=== PATIENT | female | born 2000 | race Caucasian/White ===

== ENCOUNTER 2018-05-14 13:23 | Emergency (ER) | payer OTHER, SELFPAY ==
[2018-05-14 14:05] LABS: Absolute Lymphocytes (CBC) 1.5 K/uL (0.7-4.9); Absolute Monocytes 0.6 K/uL (0.1-1.3); Absolute Neutrophil 4.7 K/uL (1.8-8.0); Basophils % 0.5 % (0-1.3); Hematocrit 41.7 % (36.0-45.0); Lymphocytes % 22.1 % (15.3-44.8); MCH 31.1 pg (27.0-35.0); MCV 91.6 fL (80-100); RBC Red Blood Cell Count 4.55 M/uL (3.86-4.86)
[2018-05-14 14:07] LABS: Protime INR 0.97
[2018-05-14 14:25] LABS: ALT/SGPT 25 U/L (12-78); AST/SGOT 22 U/L (15-37); Albumin 4.1 g/dL (3.4-5.0); Alkaline Phosphatase 57 U/L (45-117); BUN Blood Urea Nitrogen 15 mg/dL (7-18); Bicarbonate 24 mmol/L (21-32); Bilirubin Direct 0.1 mg/dL (0-0.2); Bilirubin Total 0.5 mg/dL (0.2-1.0); Glucose Level 89 mg/dL (74-106); Potassium 3.5 mmol/L (3.5-5.1); Protein, Total 7.1 g/dL (6.4-8.2); Sodium Level 142 mmol/L (136-145)
[2018-05-14 14:36] LABS: Alcohol Serum/Plasma 3 mg/dL (0-3)
--- NOTE | 2018-05-14 15:26 | EKG ---
Test Date: 2018-05-14 Test Time: 13:43:21 Baggage Checker: JORGE MEASUREMENT RESULTS: Intervals: Rate: 58 [place]: 146 QRSD: 94 QT: 422 QTc: 414 [place]: P: 42 [place]: 146 QRS: 60 T: 53 INTERPRETIVE STATEMENTS: Sinus bradycardia with marked sinus arrhythmia Otherwise normal ECG Compared to ECG 09/30/2016 20:29:37 Sinus rhythm no longer present Electronically Signed On 05-14-18 15:25:56 CDT by Robert Crandall
[2018-05-14 16:03] LABS: Barbiturates NEGATIVE (NEGATIVE); Benzodiazepines POSITIVE (NEGATIVE); Cocaine NEGATIVE (NEGATIVE); METHAMPHETAM NEGATIVE (NEGATIVE); Methadone NEGATIVE (NEGATIVE); Opiates NEGATIVE (NEGATIVE); Phencyclidine NEGATIVE (NEGATIVE); THC Cannibis POSITIVE (NEGATIVE)
[2018-05-14 17:49] LABS: Urine Blood NEGATIVE (NEG); Urine Glucose NEGATIVE (NEG); Urine Protein NEGATIVE (NEG); Urine Specific Gravity 1.025 (1.005-1.030); Urine pH 6.5 (5.0-7.0)
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
[2018-05-14 22:17] LABS: Urine Specific Gravity 1.025 (1.005-1.030)
== END 2018-05-14 20:43 | disposition home or self-care (01) ==
LOC: ER 13:23
DX: F55.8 Abuse of other non-psychoactive substances (principal); T14.91XA Suicide attempt, initial encounter; X83.8XXA Intentional self-harm by other specified means, initial encounter; Y92.199 Unspecified place in other specified residential institution as the place of occurrence of the external cause; R45.851 Suicidal ideations
CPT/HCPCS: 36415; 80048; 80076; 80307; 80320; 81003; 81025; 85025; 85610; 93005; 99285

== ENCOUNTER 2018-09-02 10:55 | Emergency (ER) | payer OTHER ==
[2018-09-02] MEDS ORDERED: HYDROCODONE/APAP 5/325 MG TAB ONE (13:12)
[2018-09-02] MEDS ORDERED: LIDOCAINE 1% W/EPI 1:100,000 MDV 50 ML VIAL ONE (13:12)
[2018-09-02] MEDS ORDERED: DERMABOND SKIN ADHESIVE TOP ONE (13:16)
--- NOTE | 2018-09-02 14:06 | RAD REPORT ---
EXAM DESCRIPTION: RAD - Hand Left 3 View - 09/02/2018 1:56 pm CLINICAL HISTORY: PAIN COMPARISON: No comparisons FINDINGS: No bone or joint abnormality seen.
--- NOTE | 2018-09-02 14:06 | RAD REPORT ---
EXAM DESCRIPTION: RAD - Hand Right 3 View - 09/02/2018 1:56 pm CLINICAL HISTORY: DEFORMITY Pain COMPARISON: No comparisons FINDINGS: No fracture or dislocation identified. Soft tissue swelling is noted about the metatarsal head region.
--- NOTE | 2018-09-02 15:12 | ER ---
Nurse's Notes [facility] Name: Nathaly Vasquez Age: 18 yrs Sex: Female : 2000 Arrival Date: 09/02/2018 Time: 10:58 Bed 12 Private MD: Diagnosis: Puncture wound without foreign body of hand Presentation: 09/02 11:21 Presenting complaint: Patient states: i broke a window and it happened 7am today and hj feel like R knuckles had cuts and i feel like my R fingers are starting to feel numb;. Transition of care: patient was not received from another setting of care. Onset of symptoms was September 02, 2018. Risk Assessment: Do you want to hurt yourself or someone else? Patient reports no desire to harm self or others. Initial Sepsis Screen: Does the patient meet any 2 criteria? No. Patient's initial sepsis screen is negative. Does the patient have a suspected source of infection? No. Patient's initial sepsis screen is negative. Care prior to arrival: None. 11:21 Method Of Arrival: Ambulatory 11:21 Acuity: ELLIOT 4 Triage Assessment: 11:24 General: Appears in no apparent distress. uncomfortable, Behavior is calm, cooperative, hj appropriate for age. Pain: Complains of pain in right hand. Musculoskeletal: Reports pain in right hand. 14:58 Injury Description: Laceration. 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 - Social history:: Smoking status: Patient uses tobacco products, Patient/guardian denies using alcohol, Patient/guardian denies using street drugs, The patient lives with family. - Ebola Screening: : Patient negative for fever greater than or equal to 101.5 degrees Fahrenheit, and additional compatible Ebola Virus Disease symptoms Patient denies exposure to infectious person Patient denies travel to an Ebola-affected area in the 21 days before illness onset. - Family history:: not pertinent. Screenin:24 Abuse screen: Denies threats or abuse. Denies injuries from another. Nutritional hj screening: No deficits noted. Tuberculosis screening: No symptoms or risk factors identified. Fall Risk None identified. Assessment: 12:00 Reassessment: soaked wound with betadine and NS;. hj 14:50 Reassessment: Patient and/or family updated on plan of care and expected duration. Pain hj level reassessed. Patient is alert, oriented x 3, equal unlabored respirations, skin warm/dry/pink. applied with triple antibiotics and gauze dressing;. 14:58 Reassessment: was calling pt for follow up with steri strips; pt did not answer and hj return call;. Vital Signs: 11:25 BP 117 / 73; Pulse 75; Resp 18; Temp 98.6(O); Pulse Ox 99% on R/A; Weight 58.97 kg; hj Height 5 ft. 6 in. (167.64 cm); Pain 8/10; 14:58 BP 118 / 75; Pulse 74; Resp 18; Pulse Ox 100% on R/A; hj 11:25 Body Mass Index 20.98 (58.97 kg, 167.64 cm) hj ED Course: 10:58 Patient arrived in ED. rg4 11:24 Triage completed. hj 11:24 Arm band placed on right wrist. hj 11:27 Patient has correct armband on for positive identification. Bed in low position. Call hj light in reach. Side rails up X 1. Adult w/ patient. 12:41 Chidi Nolan MD is Attending Physician. ma2 13:12 Hipolito Murrell, BRENT is Primary Nurse. hj 13:56 Hand Left 3 View XRAY In Process Unspecified. EDMS 13:56 Hand Right 3 View XRAY In Process Unspecified. EDMS 14:57 No provider procedures requiring assistance completed. Patient did not have IV access hj during this emergency room visit. Administered Medications: 13:08 Drug: Orange 5 mg-325 mg 1 tabs Route: PO; hj 14:57 Follow up: Response: No adverse reaction hj 13:12 Drug: Lidocaine-Epinephrine -1%: (1:100,000) 10 ml Volume: 20 ml; Route: Infiltration; hj Outcome: 14:44 Discharge ordered by . ma2 14:57 Discharged to home ambulatory, with family. hj 14:57 Condition: stable 14:57 Discharge instructions given to patient, family, Instructed on discharge instructions, follow up and referral plans. Demonstrated understanding of instructions, follow-up care, medications, Prescriptions given X 2. 14:59 Patient left the ED. anthony Signatures: Dispatcher [employer] EDHipolito Brunson RN RN hj Garcia, Rubi rg4 Chidi Nolan MD MD ma2 Corrections: (The following items were deleted from the chart) 15:13 14:58 Reassessment: soaked wound with betadine and NS; anthony cruz
--- NOTE | 2018-09-02 15:13 | EDPHYS ---
Physician Documentation [facility] Name: Nathaly Vasquez Age: 18 yrs Sex: Female : 2000 Arrival Date: 09/02/2018 Time: 10:58 Bed 12 Private MD: ED Physician Chidi Nolan HPI: 09/02 12:59 This 18 yrs old Female presents to ER via Ambulatory with complaints of Hand ma2 Injury. 12:59 The patient or guardian reports an abrasion, decreased range of motion, injury. The ma2 complaints affect the left hand diffusely, right hand diffusely. Onset: The symptoms/episode began/occurred suddenly, 2 hour(s) ago. Associated signs and symptoms: Pertinent negatives: cyanosis distally, decreased sensation distally, nausea, vomiting. Severity of symptoms: At their worst the symptoms were moderate, in the emergency department the symptoms are unchanged. The patient has not experienced similar symptoms in the past. punched and broke glass door this morning wit both hand, has hand pain and multiple lacerations, Tdap UTD. 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 - Social history:: Smoking status: Patient uses tobacco products, Patient/guardian denies using alcohol, Patient/guardian denies using street drugs, The patient lives with family. - Ebola Screening: : Patient negative for fever greater than or equal to 101.5 degrees Fahrenheit, and additional compatible Ebola Virus Disease symptoms Patient denies exposure to infectious person Patient denies travel to an Ebola-affected area in the 21 days before illness onset. - Family history:: not pertinent. ROS: 13:04 Constitutional: Negative for fever, chills, and weight loss, ENT: Negative for injury, ma2 pain, and discharge, Cardiovascular: Negative for chest pain, palpitations, and edema, Respiratory: Negative for shortness of breath, cough, wheezing, and pleuritic chest pain, Abdomen/GI: Negative for abdominal pain, nausea, diarrhea, and constipation. 13:04 MS/extremity: Positive for abrasion, laceration, pain, swelling, tenderness, Negative for bite, decreased range of motion, deformity, tingling, warmth. 13:04 All other systems are negative. Exam: 13:04 Constitutional: This is a well developed, well nourished patient who is awake, alert, ma2 and in no acute distress. Head/Face: Normocephalic, atraumatic. Chest/axilla: Normal chest wall appearance and motion. Nontender with no deformity. No lesions are appreciated. Cardiovascular: Regular rate and rhythm with a normal S1 and S2. No gallops, murmurs, or rubs. Normal PMI, no JVD. No pulse deficits. Respiratory: Lungs have equal breath sounds bilaterally, clear to auscultation and percussion. No rales, rhonchi or wheezes noted. No increased work of breathing, no retractions or nasal flaring. Abdomen/GI: Soft, non-tender, with normal bowel sounds. No distension or tympany. No guarding or rebound. No evidence of tenderness throughout. Neuro: Awake and alert, GCS 15, oriented to person, place, time, and situation. Cranial nerves II-XII grossly intact. Motor strength 5/5 in all extremities. Sensory grossly intact. Cerebellar exam normal. Normal gait. 13:04 Musculoskeletal/extremity: Extremities: multiple laceration and edema over pip of 4th and fith finger all over, ROM: limited active range of motion, Circulation is intact in all extremities. Sensation intact. Compartment Syndrome exam of affected extremity: is normal. Vital Signs: 11:25 BP 117 / 73; Pulse 75; Resp 18; Temp 98.6(O); Pulse Ox 99% on R/A; Weight 58.97 kg; hj Height 5 ft. 6 in. (167.64 cm); Pain 8/10; 14:58 BP 118 / 75; Pulse 74; Resp 18; Pulse Ox 100% on R/A; hj 11:25 Body Mass Index 20.98 (58.97 kg, 167.64 cm) MDM: 12:41 Patient medically screened. [facility] 13:04 Differential diagnosis: open fracture, closed fracture, contusion, abrasion, tendonitis.[facility] 14:42 Data reviewed: vital signs, nurses notes. Counseling: I had a detailed discussion with ma2 the patient and/or guardian regarding: the historical points, exam findings, and any diagnostic results supporting the discharge/admit diagnosis, the presence of at least one elevated blood pressure reading (>120/80) during this emergency department visit, the need for outpatient follow up. Response to treatment: the patient's symptoms have mildly improved after treatment. ED course: xray wnl, she has multiple puncture wound of both hands no repairable lacerations, \E\. 09/02 12:58 Order name: Hand Left 3 View XRAY; Complete Time: 14:19 ma2 09/02 12:58 Order name: Hand Right 3 View XRAY; Complete Time: 14:19 ma2 09/02 12:58 Order name: Prolene, Sutures; Complete Time: 13:12 ma2 09/02 12:58 Order name: Dermabond; Complete Time: 13:12 ma2 09/02 12:58 Order name: Gloves, Sterile; Complete Time: 13:09 ma2 09/02 12:58 Order name: Dressing - Wound; Complete Time: 13:09 ma2 09/02 12:58 Order name: Setup Suture Tray; Complete Time: 13:09 ma2 09/02 14:41 Order name: Dressing - Wound: with bacitracin or triple antibiotics and apply ma2 steritrips ; Complete Time: 14:57 Administered Medications: 13:08 Drug: [place] 5 mg-325 mg 1 tabs Route: PO; 14:57 Follow up: Response: No adverse reaction 13:12 Drug: Lidocaine-Epinephrine -1%: (1:100,000) 10 ml Volume: 20 ml; Route: Infiltration; Disposition: 09/02/18 14:44 Discharged to Home. Impression: Puncture wound without foreign body of hand. - Condition is Stable. - Discharge Instructions: Delayed Wound Closure. - Prescriptions for Augmentin 875- 125 mg Oral Tablet - take 1 tablet by ORAL route every 12 hours for 10 days; 20 tablet. Tylenol- Codeine #3 300-30 mg Oral Tablet - take 2 tablet by ORAL route every 6 hours As needed; 6 tablet. - Medication Reconciliation Form, Thank You Letter, Antibiotic Education, Prescription Opioid Use form. - Follow up: Private Physician; When: Tomorrow; Reason: Continuance of care. Signatures: Dispatcher [employer] EDHipolito Brunson RN RN hj Alzahri, Mohammad, MD MD ma2 Corrections: (The following items were deleted from the chart) 14:59 14:44 09/02/2018 14:44 Discharged to Home. Impression: Puncture wound without foreign hj body of hand. Condition is Stable. Forms are Medication Reconciliation Form, Thank You Letter, Antibiotic Education, Prescription Opioid Use. Follow up: Private Physician; When: Tomorrow; Reason: Continuance of care. ma2
== END 2018-09-02 14:59 | disposition home or self-care (01) ==
LOC: ER 10:55
DX: S61.431A Puncture wound without foreign body of right hand, initial encounter (principal); W22.8XXA Striking against or struck by other objects, initial encounter; Y93.9 Activity, unspecified; Y92.9 Unspecified place or not applicable; Z72.0 Tobacco use
CPT/HCPCS: 99283

== ENCOUNTER 2019-01-28 05:31 | Emergency (ER) | payer OTHER ==
[2019-01-28 06:30] LABS: Urine Blood TRACE (NEG); Urine Glucose NEGATIVE (NEG); Urine Protein NEGATIVE (NEG)
[2019-01-28 06:36] LABS: Absolute Lymphocytes (CBC) 2.8 K/uL (0.7-4.9); Absolute Monocytes 0.6 K/uL (0.1-1.3); Absolute Neutrophil 5.1 K/uL (1.8-8.0); Basophils % 0.5 % (0-1.3); Eosinophils % 0.9 % (0-4.4); Hematocrit 42.6 % (36.0-45.0); Lymphocytes % 32.4 % (15.3-44.8); MPV 8.2 fL (7.6-11.3); Monocytes % 7.2 % (3.3-12.3); RBC Red Blood Cell Count 4.57 M/uL (3.86-4.86)
[2019-01-28] MEDS ORDERED: TETANUS & DIPHTHERIA TOX,ADULT 0.5 ML VIAL ONE (06:36)
[2019-01-28] MEDS ORDERED: DERMABOND SKIN ADHESIVE TOP ONE (06:36)
[2019-01-28 06:38] LABS: Protime INR 0.92
[2019-01-28 06:40] LABS: Barbiturates NEGATIVE (NEGATIVE); Benzodiazepines NEGATIVE (NEGATIVE); Cocaine POSITIVE (NEGATIVE); METHAMPHETAM NEGATIVE (NEGATIVE); Methadone NEGATIVE (NEGATIVE); Opiates NEGATIVE (NEGATIVE); Phencyclidine NEGATIVE (NEGATIVE); THC Cannibis POSITIVE (NEGATIVE)
[2019-01-28] MEDS ORDERED: LIDOCAINE 1% 20 ML MDV ONE (06:50)
[2019-01-28 07:28] LABS: ALT/SGPT 22 U/L (12-78); AST/SGOT 17 U/L (15-37); Albumin 4.3 g/dL (3.4-5.0); Alkaline Phosphatase 56 U/L (45-117); BUN Blood Urea Nitrogen 10 mg/dL (7-18); Bicarbonate 27 mmol/L (21-32); Bilirubin Direct 0.1 mg/dL (0-0.2); Bilirubin Total 0.4 mg/dL (0.2-1.0); Glucose Level 93 mg/dL (74-106); Potassium 3.7 mmol/L (3.5-5.1); Protein, Total 7.8 g/dL (6.4-8.2); Sodium Level 145 mmol/L (136-145)
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
--- NOTE | 2019-01-28 08:33 | EKG ---
Test Date: 2019-01-28 Test Time: 04:49:21 Sounding Device Operator: BRAYDEN MEASUREMENT RESULTS: Intervals: Rate: 109 ME: 150 QRSD: 88 QT: 352 QTc: 474 Cyrus: P: 51 ME: 150 QRS: 66 T: 45 INTERPRETIVE STATEMENTS: Sinus tachycardia Otherwise normal ECG Compared to ECG 05/14/2018 13:43:21 Sinus bradycardia no longer present Sinus arrhythmia no longer present Electronically Signed On 01-28-19 08:32:30 CDT by Robert Crandall
== END 2019-01-28 08:10 ==
LOC: ER 05:31
PROC: 0JQ10ZZ Repair Face Subcutaneous Tissue and Fascia, Open Approach (ICD-10-PCS; principal; 2019-01-28)
DX: S01.81XA Laceration without foreign body of other part of head, initial encounter (principal); W22.8XXA Striking against or struck by other objects, initial encounter; F14.10 Cocaine abuse, uncomplicated; Z23 Encounter for immunization; R45.851 Suicidal ideations
CPT/HCPCS: 36415; 80048; 80076; 80307; 80320; 80329; 81003; 81025; 85025; 85610; 85730; 90714; 93005; 99285

== ENCOUNTER 2019-09-07 06:14 | Emergency (ER) | payer OTHER ==
[2019-09-07] MEDS ORDERED: NA CHLORIDE 0.9% 1,000 ML ONE ×2 (06:43→08:41)
[2019-09-07 06:57] LABS: Protime INR 0.99
[2019-09-07 07:02] LABS: Barbiturates NEGATIVE (NEGATIVE); Benzodiazepines NEGATIVE (NEGATIVE); Cocaine NEGATIVE (NEGATIVE); METHAMPHETAM NEGATIVE (NEGATIVE); Methadone NEGATIVE (NEGATIVE); Opiates NEGATIVE (NEGATIVE); Phencyclidine NEGATIVE (NEGATIVE); THC Cannibis NEGATIVE (NEGATIVE)
[2019-09-07 07:14] LABS: ALT/SGPT 24 U/L (12-78); AST/SGOT 18 U/L (15-37); Albumin 4.5 g/dL (3.4-5.0); Alkaline Phosphatase 55 U/L (45-117); BUN Blood Urea Nitrogen 7 mg/dL (7-18); Bicarbonate 26 mmol/L (21-32); Bilirubin Direct 0.1 mg/dL (0-0.2); Bilirubin Total 0.3 mg/dL (0.2-1.0); Glucose Level 88 mg/dL (74-106); Potassium 3.7 mmol/L (3.5-5.1); Protein, Total 8.1 g/dL (6.4-8.2); Sodium Level 144 mmol/L (136-145)
[2019-09-07 07:15] LABS: Urine Blood 2+ (NEG); Urine Glucose NEGATIVE (NEG); Urine Protein NEGATIVE (NEG); Urine Specific Gravity 1.015 (1.005-1.030); Urine pH 5.5 (5.0-7.0)
[2019-09-07 07:19] LABS: Absolute Lymphocytes (CBC) 2.3 K/uL (0.7-4.9); Basophils % 0.6 % (0-1.3); Hematocrit 40.4 % (36.0-45.0); Lymphocytes % 43.6 % (15.3-44.8); MPV 7.8 fL (7.6-11.3); RBC Red Blood Cell Count 4.44 M/uL (3.86-4.86)
--- NOTE | 2019-09-07 15:25 | ER ---
Nurse's Notes [facility] Name: Nathaly Vasquez Age: 19 yrs Sex: Female : 2000 Arrival Date: 09/07/2019 Time: 06:20 Bed 16 Private MD: Diagnosis: Alcohol use, unspecified with intoxication Presentation: 09/07 06:30 Presenting complaint: EMS states: they were toned out for report of pt with suicidal bb ideations. Transition of care: patient was not received from another setting of care. Onset of symptoms was September 07, 2019. Risk Assessment: Do you want to hurt yourself or someone else? Patient reports no desire to harm self or others. Initial Sepsis Screen: Does the patient meet any 2 criteria? No. Patient's initial sepsis screen is negative. Does the patient have a suspected source of infection? No. Patient's initial sepsis screen is negative. Care prior to arrival: None. 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 - Social history:: Smoking status: Patient/guardian denies using tobacco, Patient uses alcohol, patient/guardian reports recent binge of alcohol consumption. - Ebola Screening: : No symptoms or risks identified at this time. Screenin:46 Abuse screen: Denies threats or abuse. Denies injuries from another. Nutritional wh screening: No deficits noted. Tuberculosis screening: No symptoms or risk factors identified. Fall Risk None identified. Assessment: 06:47 General: Appears in no apparent distress. Behavior is cooperative, appropriate for age, wh crying, Smells of alcohol. Pain: Denies pain. Neuro: Level of Consciousness is awake, alert, obeys commands, Oriented to person, place, time, situation, Appropriate for age. Cardiovascular: Heart tones S1 S2. Respiratory: Airway is patent Respiratory effort is even, unlabored, Respiratory pattern is regular, symmetrical, Breath sounds are clear bilaterally. GI: Abdomen is flat, non-distended. : No signs and/or symptoms were reported regarding the genitourinary system. EENT: No signs and/or symptoms were reported regarding the EENT system. Derm: Skin is intact, is healthy with good turgor, Skin is pink, warm \\T\\ dry. normal. Musculoskeletal: Circulation, motion, and sensation intact. 07:45 Reassessment: Patient appears in no apparent distress at this time. No changes from rb1 previously documented assessment. 08:44 Reassessment: Patient appears in no apparent distress at this time. Patient and/or rb1 family updated on plan of care and expected duration. Pain level reassessed. Patient is alert, oriented x 3, equal unlabored respirations, skin warm/dry/pink. 08:46 Reassessment: Pt. mother called for information, I explained to the mother that I was rb1 not able to release information over the phone due to privacy issues, she then stated, "I'm her mother." She was very agitated. I reiterated that legally I could not release information. The mother stated, "Will you let her know that I was there this morning and that I called to check on her?" I agreed and the mother asked me why I was being condescending to her, I apologized and told her that I didn't mean to sound that way, she told me to record myself and listen to it because she has had to do that before and hung up. 09:44 Reassessment: Patient appears in no apparent distress at this time. Pt. is resting with rb1 eyes closed, respirations even, unlabored. 10:44 Reassessment: Patient appears in no apparent distress at this time. No changes from rb1 previously documented assessment. 11:40 Reassessment: Patient appears in no apparent distress at this time. Pt. is resting with rb1 eyes closed, respirations even, unlabored. 12:40 Reassessment: Patient appears in no apparent distress at this time. No changes from rb1 previously documented assessment. 13:38 Reassessment: Pt. denies suicidal and homicidal ideation. Pt. reports, "When the harpoon engagement planning operator rb1 caught me walking on the road, they told me that I could come here or go to [facility], so I told them I wanted to come here because I didn't want to go to [facility]. 14:30 Reassessment: Patient appears in no apparent distress at this time. Patient and/or rb1 family updated on plan of care and expected duration. Pain level reassessed. Patient is alert, oriented x 3, equal unlabored respirations, skin warm/dry/pink. 15:30 Reassessment: Patient appears in no apparent distress at this time. No changes from rb1 previously documented assessment. PT. contacted her sister to come and pick her up. Discharge pending due to transportation. 15:45 Reassessment: Pt. sister has arrived to provide transportation. rb1 Psych: 06:46 Subjective: Patient's mood is sad. Objective: Patient is cooperative, Speech is normal, wh Affect is flat. Interventions: Removed personal items and placed in bag. Patient placed in hospital gown. Searched person for dangerous items. Urine collected and sent for urine drug test. Belonging list filled out. Suicide Risk Assessment: Sad Person Scale: Sex of patient: Female: Score 0 points. Age of patient: Score 1 point if patient 15-34. Safety Checks: Personal items have been removed. Door is open. No visitors are present at this time. Patient uses. Commitment: Patient will be a voluntary commitment. Vital Signs: 06:38 BP 115 / 81; Pulse 81; Resp 14 S; Temp 98.3(O); Pulse Ox 95% on R/A; Weight 68.04 kg bb (R); Height 5 ft. 6 in. (167.64 cm) (R); 07:38 BP 119 / 79; Pulse 77; Resp 16; Pulse Ox 97% on R/A; jb1 10:30 BP 105 / 72; Pulse 72; Resp 16; Pulse Ox 97% on R/A; jb1 13:30 BP 121 / 65; Pulse 79; Resp 17; Pulse Ox 98% on R/A; jb1 15:30 BP 119 / 66; Pulse 71; Resp 16; Temp 98.2(O); Pulse Ox 100% on R/A; Pain 0/10; rb1 06:38 Body Mass Index 24.21 (68.04 kg, 167.64 cm) ED Course: 06:20 Patient arrived in ED. bb 06:21 Arya Woodard PA is PHCP. cp 06:21 Arya Duran MD is Attending Physician. cp 06:26 Killian More is Primary Nurse. wh 06:37 Triage completed. bb 06:38 Arm band placed on Patient placed in an exam room, on a stretcher, on pulse oximetry. bb 06:47 Patient has correct armband on for positive identification. Placed in gown. Bed in low wh position. Call light in reach. Side rails up X 1. Sitter at bedside. 07:00 Safety checks: Items removed: yes. Door open/sign placed on door: yes. Family/friend jb1 present: no. Sitter present: Yes. 07:15 Safety checks: Items removed: yes. Door open/sign placed on door: yes. Family/friend jb1 present: no. Sitter present: Yes. 07:30 Safety checks: Items removed: yes. Door open/sign placed on door: yes. Family/friend jb1 present: no. Sitter present: Yes. 07:45 Safety checks: Items removed: yes. Door open/sign placed on door: yes. Family/friend jb1 present: no. Sitter present: Yes. 07:58 Safety checks: Items removed: yes. Door open/sign placed on door: yes. Family/friend jb1 present: no. Sitter present: Yes. 08:15 Safety checks: Items removed: yes. Door open/sign placed on door: yes. Family/friend jb1 present: no. Sitter present: Yes. 08:30 Safety checks: Items removed: yes. Door open/sign placed on door: yes. Family/friend jb1 present: no. Sitter present: Yes. 08:45 Safety checks: Items removed: yes. Door open/sign placed on door: yes. Family/friend jb1 present: no. Sitter present: Yes. 09:00 Safety checks: Items removed: yes. Door open/sign placed on door: yes. Family/friend jb1 present: no. Sitter present: Yes. 09:15 Safety checks: Items removed: yes. Door open/sign placed on door: yes. Family/friend jb1 present: no. Sitter present: Yes. 09:30 Safety checks: Items removed: yes. Door open/sign placed on door: yes. Family/friend jb1 present: no. Sitter present: Yes. 09:45 Safety checks: Items removed: yes. Door open/sign placed on door: yes. Family/friend jb1 present: no. Sitter present: Yes. 10:00 Safety checks: Items removed: yes. Door open/sign placed on door: yes. Family/friend jb1 present: no. Sitter present: Yes. 10:15 Safety checks: Items removed: yes. Door open/sign placed on door: yes. Family/friend jb1 present: no. Sitter present: Yes. 10:30 Safety checks: Items removed: yes. Door open/sign placed on door: yes. Family/friend jb1 present: no. Sitter present: Yes. 10:45 Safety checks: Items removed: yes. Door open/sign placed on door: yes. Family/friend jb1 present: no. Sitter present: Yes. 11:00 Safety checks: Items removed: yes. Door open/sign placed on door: yes. Family/friend jb1 present: no. Sitter present: Yes. 11:15 Safety checks: Items removed: yes. Door open/sign placed on door: yes. Family/friend jb1 present: no. Sitter present: Yes. 11:26 Safety checks: Items removed: yes. Door open/sign placed on door: yes. Family/friend jb1 present: no. Sitter present: Yes. 11:30 Safety checks: Items removed: yes. Door open/sign placed on door: yes. Family/friend jb1 present: no. Sitter present: Yes. 11:45 Safety checks: Items removed: yes. Door open/sign placed on door: yes. Family/friend jb1 present: no. Sitter present: Yes. 12:00 Safety checks: Items removed: yes. Door open/sign placed on door: yes. Family/friend jb1 present: no. Sitter present: Yes. 12:13 Safety checks: Items removed: yes. Door open/sign placed on door: yes. Family/friend jb1 present: no. Sitter present: Yes. 12:30 Safety checks: Items removed: yes. Door open/sign placed on door: yes. Family/friend jb1 present: no. Sitter present: Yes. 12:45 Safety checks: Items removed: yes. Door open/sign placed on door: yes. Family/friend jb1 present: no. Sitter present: No. 13:00 Safety checks: Items removed: yes. Door open/sign placed on door: yes. Family/friend jb1 present: no. Sitter present: Yes. 13:15 Safety checks: Items removed: yes. Door open/sign placed on door: yes. Family/friend jb1 present: no. Sitter present: Yes. 13:30 Safety checks: Items removed: yes. Door open/sign placed on door: yes. Family/friend jb1 present: no. Sitter present: Yes. 15:56 No provider procedures requiring assistance completed. IV discontinued, intact, rb1 bleeding controlled, No redness/swelling at site. Pressure dressing applied. Administered Medications: 06:43 Drug: NS 0.9% 1000 ml Route: IV; Rate: 1 bolus; Site: left antecubital; 08:44 Follow up: IV Status: Completed infusion rb1 08:50 Drug: NS 0.9% 1000 ml Route: IV; Rate: 125 ml/hr; Site: left antecubital; rb1 15:20 Follow up: IV Status: Completed infusion rb1 Outcome: 15:24 Discharge ordered by MD. cp 15:56 Discharged to home ambulatory, with family. rb1 15:56 Condition: stable 15:56 Discharge instructions given to patient, Instructed on discharge instructions, follow up and referral plans. Demonstrated understanding of instructions, follow-up care, Prescriptions given X none 15:56 Patient left the ED. rb1 Signatures: Darius Craft1 Jacqueline Serrano RN RN bb Arya Woodard PA PA cp Aileen Herrera, RN RN [facility] Killian More Corrections: (The following items were deleted from the chart) 10:04 08:46 Reassessment: Pt. mother called for information, I explained to the mother that I rb1 was not able to release information over the phone due to privacy issues, she then stated, "I'm her mother." She was very agitated. I reiterated that legally I could not release information. The mother stated, "Will you let her know that I was there this morning and that I called to check on her?" I agreed and the mother asked me why I was being condescending to her, I apologized and told her that I didn't mean to sound that way and she hung up. rb1 11:40 11:40 Safety checks: jb1 jb1 16:01 16:00 Patient left the ED. rb1 rb1
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
[2019-09-07 18:23] VITALS: BP 119/66; TEMP 98.2; O2SAT 100
--- NOTE | 2019-09-08 17:22 | EKG ---
Test Date: 2019-09-07 Test Time: 06:27:14 Finishing Supervisor: KIARA MEASUREMENT RESULTS: Intervals: Rate: 84 IA: 158 QRSD: 94 QT: 388 QTc: 458 [place]: P: 44 IA: 158 QRS: 66 T: 56 INTERPRETIVE STATEMENTS: Normal sinus rhythm Normal ECG Compared to ECG 01/28/2019 04:49:21 Sinus tachycardia no longer present Electronically Signed On 09-08-19 17:22:12 CDT by Robert Crandall
== END 2019-09-07 16:00 | disposition home or self-care (01) ==
LOC: ER 06:14 → EEVIPCON 06:14 → ER 16:00
DX: F10.129 Alcohol abuse with intoxication, unspecified (principal)
CPT/HCPCS: 96361; 93005; 85025; 80048; 36415; 80320 ×2; 80329 ×2; 81025; 85610; 80076; 80307 ×8; 85730; 81003; 96360; 99285; J7030 ×2

== ENCOUNTER 2022-10-05 20:52 | Emergency (ER) | payer OTHER, SELFPAY ==
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
--- NOTE | 2022-10-05 21:58 | RAD REPORT ---
EXAM DESCRIPTION: RAD - Hand Right 3 View - 10/05/2022 9:37 pm CLINICAL HISTORY: Pain COMPARISON: Hand Right 3 View dated 09/02/2018 FINDINGS: Mild soft tissue swelling is seen along the dorsum of the hand. No acute fracture or dislo cation seen.
[2022-10-05 23:57] LABS: Hematocrit 43.4 % (36.0-45.0); MCV 96.3 fL (80-100); MPV 7.5 fL (7.6-11.3); RBC Red Blood Cell Count 4.51 M/uL (3.86-4.86)
[2022-10-06 00:03] LABS: ALT/SGPT 27 U/L (12-78); AST/SGOT 27 U/L (15-37); Albumin 4.2 g/dL (3.4-5.0); Alkaline Phosphatase 61 U/L (45-117); BUN Blood Urea Nitrogen 12 mg/dL (7-18); Bicarbonate 26 mmol/L (21-32); Bilirubin Total 0.3 mg/dL (0.2-1.0); Glomerular Filtration Rate 101 ml/min (=/>90); Glucose Level 87 mg/dL (74-106); Potassium 3.6 mmol/L (3.5-5.1); Protein, Total 8.1 g/dL (6.4-8.2); Sodium Level 142 mmol/L (136-145)
[2022-10-06 00:23] LABS: Urine Blood Negative (Negative); Urine Glucose Negative (Negative); Urine Protein Negative (Negative); Urine Specific Gravity <=1.005 (1.005-1.030); Urine pH 5.5 (5.0-7.0)
[2022-10-06] MEDS ORDERED: ZIPRASIDONE MESYLA 20 MG/VIAL IM ONE (00:24)
[2022-10-06] MEDS ORDERED: WATER FOR INJ,STERILE 10 ML ONE (00:25)
[2022-10-06 00:38] LABS: Specific Gravity < 1.005 (1.005-1.030); Urine Bilirubin NEGATIVE (Negative); Urine Blood Negative (Negative); Urine Clarity Clear (Clear); Urine Color Colorless (Yellow); Urine Glucose NEGATIVE (Negative); Urine Protein NEGATIVE (Negative); Urine Urobilinogen Normal (Normal)
[2022-10-06 00:45] LABS: Barbiturates NEGATIVE (NEGATIVE); Benzodiazepines POSITIVE (NEGATIVE); Cocaine NEGATIVE (NEGATIVE); METHAMPHETAM NEGATIVE (NEGATIVE); Methadone NEGATIVE (NEGATIVE); Opiates NEGATIVE (NEGATIVE); Phencyclidine NEGATIVE (NEGATIVE); THC Cannibis POSITIVE (NEGATIVE)
[2022-10-06 01:01] LABS: SARS-CoV-2 Antigen Rapid Res Negative (Negative)
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
[2022-10-06 08:18] VITALS: TEMP 97.9
[2022-10-06 08:22] VITALS: BP 126/89; O2SAT 99
== END 2022-10-06 08:14 | disposition home or self-care (01) ==
LOC: ER 20:52
DX: S09.90XA Unspecified injury of head, initial encounter (principal); S60.221A Contusion of right hand, initial encounter; F55.8 Abuse of other non-psychoactive substances; F10.129 Alcohol abuse with intoxication, unspecified; Y04.2XXA Assault by strike against or bumped into by another person, initial encounter; Y93.9 Activity, unspecified; Y92.9 Unspecified place or not applicable; Z20.822 Contact with and (suspected) exposure to COVID-19
CPT/HCPCS: 36415; 70450; 72125; 80053; 80307; 80320; 80329; 81001; 81003; 81015; 84703; 85027; 87811; 96372; 99285; J3486